=== PATIENT | female | born 1970 | race Caucasian/White ===

== ENCOUNTER → 2016-08-06 | Outpatient (CLI) | payer BC ==
[~2016-08-06] MED LIST: ADVIL200 MG PO; CALCIUM + VITA1 EACH PO; LEVOTHROID (S100 MCG PO; PRILOSEC20 MG PO; TAB-A-VITE1 EACH PO; ZOLPIDEM TARTRA10 MG PO
== END | disposition disaster alternative care site (69) ==
LOC: GRAD 11:30
DX: M54.9 Dorsalgia, unspecified (principal); M47.817 Spondylosis without myelopathy or radiculopathy, lumbosacral region; M51.26 Other intervertebral disc displacement, lumbar region; M53.86 Other specified dorsopathies, lumbar region

== ENCOUNTER → 2016-08-09 | Day surgery (SDC) | payer BC ==
[~2016-08-09] VITALS: Ht 172.7 cm; Wt 83.0 kg
--- NOTE | ~2016-08-09 | OR ---
PATIENT'S NAME: HARSHA CARRANZA [facility] AGE: 46 Y [address] ROOM: [place] [address] LOCATION: [facility] – [place], [place] ADMIT DATE: 08/09/2016 OR/Procedure Report DISCHARGE DATE: FAMILY PHYSICIAN: Ilsa Hearn ATTENDING PHYSICIAN: Cris Greco SURGEON: Kevin Carlton MD [employer] LEASING CONSULTANT: DATE OF PROCEDURE: 08/09/2016 PROCEDURE: Left L5-S1 transforaminal epidural steroid injection. INDICATIONS: The patient has lumbar disc disease with radiculopathy. Risks, benefits, and alternatives were explained to the patient. She wished to proceed. DESCRIPTION OF PROCEDURE: She was taken into the procedure room, placed in a prone position. Back was prepped with Betadine x3 and sterile drape applied over top. Fluoroscopy was used to identify the L5 and S1 disc interspace. The back was prepped with Betadine x3 and sterile drape over top. Next, 3 mL of 1% lidocaine was injected as local anesthetic. Then, using fluoroscopic guidance, a 22-gauge 3.5 inch spinal needle was advanced into position. Once the needle was felt to be in position, 1 mL of Isovue was injected in the lateral and AP views. This showed a good epidural spread. No intrathecal uptake, no intravascular uptake. Next, after negative aspiration, a mixture of 2 mL of 2% lidocaine and 10 mg of preservative-free Decadron were injected without complication. The stylette placed. Needle was removed. Hemostasis was achieved. Complications none. Blood loss none. KEVIN CARLTON MD JJP/modl /[id number] d: 08/10/16 0138 t: 08/16/16 1501, OPERATIVE SUMMARY
== END | disposition disaster alternative care site (69) ==
LOC: GPOC 08-07 11:00 → GSDC 08-08 11:00
PROC: 3E0R3BZ Introduction of Anesthetic Agent into Spinal Canal, Percutaneous Approach (ICD-10-PCS; principal; 2016-08-09)
PROC: 3E0R33Z Introduction of Anti-inflammatory into Spinal Canal, Percutaneous Approach (ICD-10-PCS; 2016-08-09)
DX: M51.16 Intervertebral disc disorders with radiculopathy, lumbar region (principal); E03.9 Hypothyroidism, unspecified